=== PATIENT | female | born 1995 | race Caucasian/White ===

== ENCOUNTER 2018-09-28 09:30 | Emergency (ER) | payer BC ==
[2018-09-28] MEDS ORDERED: ELUX75TA PO (09:41)
[2018-09-28] MEDS ORDERED: NORE-74 PO (09:41)
[2018-09-28] MEDS ORDERED: ONDANSETRON 4 MG/2 ML VIAL IVP ONE (09:55)
[2018-09-28] MEDS ORDERED: NS(*) 0.9% 1000 ML BAG 1,000 ML IV ONE (09:55)
[2018-09-28] MEDS ORDERED: MORPHINE 4 MG/ML SDV IVP ONE (09:55)
--- NOTE | 2018-09-28 09:59 | ER Report ---
History and Physical Time Seen By MD: 09:50 Hx. of Stated Complaint: PATIENT REPORTS LEFT SIDED FLANK PAIN THAT WOKE HER UP AT 0845. HPI/ROS CHIEF COMPLAINT: flank pain HISTORY OF PRESENT ILLNESS: Patient was awoken this morning at 0845 with left- sided abdominal/flank pain. Pain is 7 out of 10. Pain is always present but fluctuating. Pain is sharp not radiating. She has never had pain like this before. She has nausea, no other abdominal pain, no vomiting, no change in urination. Last menstrual period was 2 weeks ago and was normal. No abdominal surgeries. Patient has had family history of kidney stones but no personal history kidney stones. REVIEW OF SYSTEMS: Constitutional: No fever, no chills. Eyes: No discharge. ENT: No sore throat. Cardiovascular: No chest pain, no palpitations. Respiratory: No cough, no shortness of breath. Gastrointestinal: above Genitourinary: No hematuria. Musculoskeletal: No back pain. Skin: No rashes. Neurological: No headache. Remainder of the 14 system rev: Yes Allergies: Coded Allergies: No Known Drug Allergies (Unverified , 09/28/18) Home Meds Reported Medications Eluxadoline (Viberzi) 75 Mg Tablet, 75 MG PO BID 09/28/18 Norethindrone A-E Estradiol (MICROGESTIN) 1 Each Tablet, 1 EACH PO QDAY 09/28/18 Reviewed Nurses Notes: Yes Hx Smoking: No Hx Substance Use Disorder: No Hx Alcohol Use: No Constitutional Vital Sign - Last 24 Hours 09/28/18 09/28/18 09/28/18 09:36 09:37 10:00 Temp 97.7 Pulse 83 82 Resp 20 B/P (MAP) 112/69 112/69 (83) 109/66 (80) Pulse Ox 95 96 O2 Delivery Room Air Physical Exam General Appearance: The patient is alert, has no immediate need for airway protection and no signs of toxicity. Pt appears uncomfortable, holding l flank Eyes: Pupils equal and round no pallor or injection. ENT, Mouth: Mucous membranes are moist. Respiratory: There are no retractions, lungs are clear to auscultation. Cardiovascular: Regular rate and rhythm. [ ] Gastrointestinal: left cvat, left flank mild ttp, no llq ttp. Neurological: alert, oriented, moves all ext Skin: Warm and dry, no rashes. Musculoskeletal: Extremities are nontender, nonswollen and have full range of motion. DIFFERENTIAL DIAGNOSIS: After history and physical exam differential diagnosis was considered for abdominal pain including but not limited to nephrolithiasis, aaa, appendicitis, cholecystitis, gastritis and urinary tract infection. Medical Decision Making Data Points Result Diagram: 09/28/1838 09/28/18937 Laboratory Hematology Test 09/28/18 09:34 09/28/18 09:38 Urine Color Yellow Urine Clarity Cloudy Urine pH 5.0 pH (4.8-9.5) Urine Specific [place] 1.026 Urine Protein Negative mg/dL (NEGATIVE) Urine Glucose (UA) Negative mg/dL (NEGATIVE) Urine Ketones Negative mg/dL (NEGATIVE) Urine Blood Moderate (NEGATIVE) Urine Nitrite Negative (NEGATIVE) Urine Bilirubin Negative (NEGATIVE) Urine Urobilinogen 2.0 mg/dL (0.2-1.9) Urine Leukocyte Esterase Negative (NEGATIVE) Urine RBC 25 /HPF (0-2/HPF) Urine WBC 3 /HPF (0-5/HPF) Urine Squamous Epithelial Cells Many /LPF (</=FEW) Urine Bacteria Few /HPF (NONE-FEW) Urine Mucus Few /HPF (NONE-FEW) Red Blood Count 5.00 M/uL (4.17-5.56) Mean Corpuscular Volume 82.8 fL (80.0-96.0) Mean Corpuscular Hemoglobin 27.6 pg (26.0-33.0) Mean Corpuscular Hemoglobin Concent 33.3 g/dL (32.0-36.0) Red Cell Distribution Width 13.4 % (11.5-14.5) Mean Platelet Volume 7.9 fL (7.2-11.1) Neutrophils (%) (Auto) 69.2 % (39.4-72.5) Lymphocytes (%) (Auto) 23.6 % (17.6-49.6) Monocytes (%) (Auto) 5.4 % (4.1-12.4) Eosinophils (%) (Auto) 1.3 % (0.4-6.7) Basophils (%) (Auto) 0.5 % (0.3-1.4) Nucleated RBC Relative Count (auto) 0.0 /100WBC Neutrophils # (Auto) 9.5 K/uL (2.0-7.4) Lymphocytes # (Auto) 3.2 K/uL (1.3-3.6) Monocytes # (Auto) 0.7 K/uL (0.3-1.0) Eosinophils # (Auto) 0.2 K/uL (0.0-0.5) Basophils # (Auto) 0.1 K/uL (0.0-0.1) Nucleated RBC Absolute Count (auto) 0.00 K/uL Sodium Level 142 mmol/L (137-145) Potassium Level 4.0 mmol/L (3.5-5.0) Chloride Level 110 mmol/L (98-107) Carbon Dioxide Level 19 mmol/L (22-31) Blood Urea Nitrogen 16 mg/dl (7-18) Creatinine 0.80 mg/dl (0.52-1.04) Glomerular Filtration Rate Calc > 60.0 Random Glucose 152 mg/dl (75-110) Calcium Level 9.3 mg/dl (8.4-10.2) Total Bilirubin 0.5 mg/dl (0.2-1.3) Aspartate Amino Transf (AST/SGOT) 21 U/L (0-35) Alanine Aminotransferase (ALT/SGPT) 31 U/L (0-56) Alkaline Phosphatase 76 U/L (0-126) Total Protein 7.4 g/dl (6.3-8.2) Albumin 4.1 g/dl (3.5-5.0) Lipase 39 U/L (23-300) Human Chorionic Gonadotropin, Qual Negative (NEGATIVE) Chemistry Test 09/28/18 09:34 09/28/18 09:38 Urine Color Yellow Urine Clarity Cloudy Urine pH 5.0 pH (4.8-9.5) Urine Specific [place] 1.026 Urine Protein Negative mg/dL (NEGATIVE) Urine Glucose (UA) Negative mg/dL (NEGATIVE) Urine Ketones Negative mg/dL (NEGATIVE) Urine Blood Moderate (NEGATIVE) Urine Nitrite Negative (NEGATIVE) Urine Bilirubin Negative (NEGATIVE) Urine Urobilinogen 2.0 mg/dL (0.2-1.9) Urine Leukocyte Esterase Negative (NEGATIVE) Urine RBC 25 /HPF (0-2/HPF) Urine WBC 3 /HPF (0-5/HPF) Urine Squamous Epithelial Cells Many /LPF (</=FEW) Urine Bacteria Few /HPF (NONE-FEW) Urine Mucus Few /HPF (NONE-FEW) White Blood Count 13.7 k/uL (4.5-11.0) Red Blood Count 5.00 M/uL (4.17-5.56) Hemoglobin 13.8 g/dL (12.0-16.0) Hematocrit 41.4 % (34.0-47.0) Mean Corpuscular Volume 82.8 fL (80.0-96.0) Mean Corpuscular Hemoglobin 27.6 pg (26.0-33.0) Mean Corpuscular Hemoglobin Concent 33.3 g/dL (32.0-36.0) Red Cell Distribution Width 13.4 % (11.5-14.5) Platelet Count 430 K/uL (150-450) Mean Platelet Volume 7.9 fL (7.2-11.1) Neutrophils (%) (Auto) 69.2 % (39.4-72.5) Lymphocytes (%) (Auto) 23.6 % (17.6-49.6) Monocytes (%) (Auto) 5.4 % (4.1-12.4) Eosinophils (%) (Auto) 1.3 % (0.4-6.7) Basophils (%) (Auto) 0.5 % (0.3-1.4) Nucleated RBC Relative Count (auto) 0.0 /100WBC Neutrophils # (Auto) 9.5 K/uL (2.0-7.4) Lymphocytes # (Auto) 3.2 K/uL (1.3-3.6) Monocytes # (Auto) 0.7 K/uL (0.3-1.0) Eosinophils # (Auto) 0.2 K/uL (0.0-0.5) Basophils # (Auto) 0.1 K/uL (0.0-0.1) Nucleated RBC Absolute Count (auto) 0.00 K/uL Glomerular Filtration Rate Calc > 60.0 Calcium Level 9.3 mg/dl (8.4-10.2) Total Bilirubin 0.5 mg/dl (0.2-1.3) Aspartate Amino Transf (AST/SGOT) 21 U/L (0-35) Alanine Aminotransferase (ALT/SGPT) 31 U/L (0-56) Alkaline Phosphatase 76 U/L (0-126) Total Protein 7.4 g/dl (6.3-8.2) Albumin 4.1 g/dl (3.5-5.0) Lipase 39 U/L (23-300) Human Chorionic Gonadotropin, Qual Negative (NEGATIVE) Urinalysis Test 09/28/18 09:34 Urine Color Yellow Urine Clarity Cloudy Urine pH 5.0 pH (4.8-9.5) Urine Specific [place] 1.026 Urine Protein Negative mg/dL (NEGATIVE) Urine Glucose (UA) Negative mg/dL (NEGATIVE) Urine Ketones Negative mg/dL (NEGATIVE) Urine Blood Moderate (NEGATIVE) Urine Nitrite Negative (NEGATIVE) Urine Bilirubin Negative (NEGATIVE) Urine Urobilinogen 2.0 mg/dL (0.2-1.9) Urine Leukocyte Esterase Negative (NEGATIVE) Urine RBC 25 /HPF (0-2/HPF) Urine WBC 3 /HPF (0-5/HPF) Urine Squamous Epithelial Cells Many /LPF (</=FEW) Urine Bacteria Few /HPF (NONE-FEW) Urine Mucus Few /HPF (NONE-FEW) EKG/Imaging Imaging left proximal ureter stone 2 mm with sm hydro ED Course/Re-evaluation ED Course Patient presents with left flank pain consistent with renal colic. She has benign abdomen throughout evaluation. CT is consistent with left ureterolith. Pain is zero out of 10 at time of discharge and reevaluation. I discussed at length recommendations and SRP's. Decision to Disposition Date: Sep 28, 2018 Decision to Disposition Time: 11:25 Depart Departure Latest Vital Signs Vital Signs Date Time Temp Pulse Resp B/P (MAP) Pulse Ox O2 Delivery O2 Flow Rate FiO2 09/28/18 10:00 82 109/66 (80) 96 09/28/18 09:36 97.7 20 Room Air Impression: Primary Impression: Ureterolithiasis Condition: Improved Disposition: HOME OR SELF-CARE New Scripts Hydrocodone Bit/Acetaminophen (NORCO 5-325 TABLET) 1 Each Tablet 1 EACH PO Q6H for PAIN, #10 TAB Prov: DA BESS MD 09/28/18 Ondansetron Hcl (ZOFRAN) 4 Mg Tablet 4 MG PO Q84H for Muscle Relaxant, #20 TAB Prov: DA BESS MD 09/28/18 Patient Instructions: Kidney Stones (ED) Additional Instructions: As we discussed, I recommend taking ibuprofen 600 mg every 8 hours. You may take [place] for breakthrough pain. Strain your urine and if you collect the stone, take it to primary doctor for analysis. Please return for uncontrolled pain, nausea, fevers, or any concerns. DA BESS MD Sep 28, 2018 09:59
[2018-09-28 10:04] LABS: PLATELET COUNT, AUTOMATED 430 K/uL (150-450)
[2018-09-28] MEDS ORDERED: KETOROLAC 15 MG/ML VIAL IVP ONE (10:45)
[2018-09-28 11:00] VITALS: BP 117/77
--- NOTE | 2018-09-28 11:02 | RADIOLOGY IMAGING REPORT ---
FACILITY: [facility] - [place] PATIENT NAME: Katie Hughes : 1995 MR: [id number] V: [id number] EXAM DATE: ORDERING PHYSICIAN: DA BESS TECHNOLOGIST: Location: [facility] - [place] Patient: Katie Hughes : 1995 Visit/Account:[id number] Date of Sevice: 09/28/2018 CT scan of the abdomen and pelvis without contrast. HISTORY: Left flank pain, hematuria. COMPARISON: None. 3 mm thick and [address] images were obtained of the abdomen and pelvis. No intravenous or oral contrast. The study is limited to the urinary tract for evaluation of stone disease. One of the following dose optimization techniques was utilized in the performance of this exam: Automated exposu re control; adjustment of the mA and/or kV according to the patient's size; or use of an iterative r econstruction technique. Specific details can be referenced in the facility's radiology CT exam oper ational policy. FINDINGS: The lung bases are clear. The liver and spleen are normal in size. The gallbladder and bile ducts are unremarkable. The pancrea s is normal in size. The adrenal glands are normal in size. The right kidney measures 11.8 cm in length. No right hydronephrosis. The left kidney measures 11.9 cm in length. The left renal calyces are slightly dilated. The left re nal pelvis is normal in size. A 2 mm calcification is present in the left ureter at the junction of t he proximal and middle thirds. The renal papillae are slightly dense bilaterally. The ureters take a normal course to the urinary bl adder. The urinary bladder is nearly empty. Moderate amounts of stool are present in the colon. The appendix is normal in size. The abdominal aor ta is normal in size. Several small lymph nodes measuring less than 1.5 cm in diameter are scattered in the mesentery and retroperitoneum. No bulky adenopathy. The uterus is slightly tipped to the left. The ovaries are not well visualized. No acute bony abnormalities. IMPRESSION: 2 mm stone causing mild obstruction of the left proximal ureter. Slightly dense renal papillae bilaterally suggesting possible renal tubular ectasia (medullary sponge kidney. Results were discussed with DA BESS at 09/28/2018 10:54 AM. Report Dictated By: Sebastian Mcdonnell MD at 09/28/2018 10:44 AM Report E-Signed By: Sebastian Mcdonnell MD at 09/28/2018 10:57 AM WSN:[id number]
[2018-09-28] MEDS ORDERED: HYDR-653 PO (11:27)
[2018-09-28] MEDS ORDERED: ONDA4TAB97 PO (11:27)
== END 2018-09-28 11:36 | disposition home or self-care (01) ==
LOC: ER 09:50
DX: N20.1 Calculus of ureter (principal)
CPT/HCPCS: 74176; 81001; 83690; 84703; 85025; 96361; 96374; 96375; 99284; J1885; J2270; J2405; J7030; 82040; 82247; 82310; 82374; 82435; 82565; 82947; 84075; 84132; 84155; 84295; 84450; 84460; 84520